=== PATIENT | female | born 1970 | race Caucasian/White ===

== ENCOUNTER 2021-05-04 07:28 | Outpatient (RCR) | payer OTHER, SELFPAY ==
[2021-03-18 07:50] VITALS: BMI 74.0
--- NOTE | 2021-03-25 08:02 | PCWOUND ---
WOCN NOTE patient called and left voicemail to cancel appointment for today at 0730. States she is ill. Will call back to reschedule for next week.
--- NOTE | 2021-06-01 07:21 | PCWOUND ---
WOCN NOTE Patient left voicemail to cancel appointment for today 06/01/21. Patient states she has tested positive for COVID-19. Patient to contact the wound center once she is off quarantine and has a negative test.
== END 2021-06-16 23:59 | disposition home or self-care (01) ==
LOC: ANHWOC 07:28
PROVIDERS: PCP Family Medicine; Visit Provider Physician Assistant Medical
DX: L97.911 Non-pressure chronic ulcer of unspecified part of right lower leg limited to breakdown of skin (principal)
CPT/HCPCS: 99212; A9270; G0463

== ENCOUNTER 2021-06-04 12:12 | Inpatient (IN) | payer OTHER, SELFPAY ==
[2021-06-04] VITALS (8 sets, daily range): BP systolic 108–143; BP diastolic 45–76; PULSE 73–90; RESP 18–24; TEMP 35.9–36.2; O2SAT 83–100
--- NOTE | ~2021-06-04 | XR_ITS ---
XR chest 1V portable DATE: 06/10/2021 10:55 INDICATION: Pneumonia TECHNIQUE: Portable upright AP chest on 06/06/2021 at 1038 hours COMPARISON: 06/06/2021 portable AP chest at 1205 hours FINDINGS: Patchy bilateral pulmonary infiltrates appear stable or mildly improved since 06/06/2021. No pleural effusion. Normal heart size. No pneumothorax. IMPRESSION: Stable or mildly improved patchy bilateral pulmonary infiltrates since 06/06/2021 Reviewed, dictated and finalized at location A. S TECHNICIAN/INSTALLER IMPRESSION: Stable or mildly improved patchy bilateral pulmonary infiltrates si nce 06/06/2021
--- NOTE | ~2021-06-04 | XR_ITS ---
XR chest 1V portable 06/06/2021 12:17 Indication: Pneumonia Procedure: AP portable chest Comparison: 06/04/2021 Findings: There is improving patchy bilateral airspace disease, consistent with resolving pneumonia. No pleural effusion or pneumothorax. No acute osseous abnormality. Impression: 1: Improving patchy bilateral pneumonia. Reviewed, dictated and finalized at location A. IGERATING MACHINE OPERATOR Impression: 1: Improving patchy bilateral pneumonia.
--- NOTE | ~2021-06-04 | US_ITS ---
. EXAMINATION: US renal BI DATE: 06/05/2021 09:32 INDICATION: Acute kidney injury. TECHNIQUE: Multiple ultrasound grayscale images of the kidneys were obtained. COMPARISON: CT abdomen and pelvis 02/01/2008 FINDINGS: The right kidney is not visualized. A structure that may be the left kidney is poorly visualized. The bladder is normal. IMPRESSION: 1. Nondiagnostic evaluation of the kidneys due to morbid obesity. Reviewed, dictated and finalized at location A. L CLEANER
--- NOTE | ~2021-06-04 | US_ITS ---
EXAMINATION: US venous doppler [facility] DATE: 06/09/2021 14:54 INDICATION: Lower limb swelling. TECHNIQUE: Grayscale ultrasound images without and with compression and Doppler ultrasound images of the bilateral lower extremity veins were obtained. COMPARISON: None. FINDINGS: The visualized portions of right common femoral vein, profunda (deep) femoral vein, femoral vein, pop liteal vein, peroneal veins, posterior tibial veins, and greater saphenous vein outflow are patent. The visualized portions of left common femoral vein, profunda femoral vein, femoral vein, popliteal v ein, peroneal veins, posterior tibial veins, and greater saphenous vein outflow are patent. IMPRESSION: 1. No deep venous thrombosis. Reviewed, dictated and finalized at location A. DING HOUSE COOK
--- NOTE | ~2021-06-04 | XR_ITS ---
EXAMINATION: XR chest 1V portable DATE: 06/04/2021 13:07 INDICATION: Shortness of breath. COVID-19 pneumonia. TECHNIQUE: A single frontal view of the chest was obtained. COMPARISON: Chest 2 views 10/10/2016 FINDINGS: There are patchy airspace opacities in all lung zones bilaterally. No pleural effusion or p neumothorax. The heart size is normal. IMPRESSION: 1. Diffuse lung disease, consistent with COVID-19 pneumonia. Reviewed, dictated and finalized at location A. UITER COORDINATOR
--- NOTE | 2021-06-04 12:17 | ECG_ITS ---
Measurements Intervals [place] Rate: 84 P: 44 ME: 153 QRS: 10 QRSD: 115 T: 35 QT: 341 QTc: 405 Interpretive Statements SINUS RHYTHM INTRAVENTRICULAR CONDUCTION DELAY VOLTAGE CRITERIA FOR LVH BASELINE ARTIFACT- III, AVF, V1-V3, V5 BORDERLINE ECG Electronically Signed On 06-04-2021 17:00:10 COMPUTER NETWORK SPECIALIST by Rubens Adrian D.O.
--- NOTE | 2021-06-04 12:36 | ED.GENADULT ---
HPI - General Adult General Chief complaint: Shortness of Breath/Dyspnea Stated complaint: COVID Positive, SOB Time Seen by Provider: 06/04/21 12:24 History of Present Illness HPI narrative: 50-year-old female presents to the emergency department complaining of Covid symptoms. Patient was vaccinated. Patient began having symptoms on Sunday. Patient's Covid test was resulted as positive Sunday. Patient does describe exertional shortness of breath and fatigue. Patient denies any associated chest pain. Patient also describes decreased appetite. Patient does have a history of sleep apnea and does wear a CPAP at nighttime. Patient was vaccinated Related Data Allergies Allergy/AdvReac Type Severity Reaction Status Date / Time No Known Allergies Allergy Mild Verified 06/04/21 12:16 Review of Systems Review of Systems: CONSTITUTIONAL: Subjective fever and chills EYES: Denies visual changes, redness, or discharge. ENT: Denies rhinorrhea, congestion, sore throat, or otalgia. CARDIOVASCULAR: Denies chest pain or palpitations, does have edema at baseline. RESPIRATORY: Reports cough and shortness of breath. GASTROINTESTINAL: Denies abdominal pain, nausea, vomiting, or diarrhea. Decreased p.o. intake GENITOURINARY: Denies dysuria or hematuria. SKIN: Denies rash or itching. MUSCULOSKELETAL: Does report myalgia. NEUROLOGIC: Denies headache, numbness, or weakness. PSYCHIATRIC: Denies anxiety or depression. PMFSH Past Medical History Medical History Ataxia Epigastric pain Obesity, morbid, BMI 50 or higher Screen for colon cancer Screening mammogram, encounter for Family History Family History Mother Hypertension Family history of kidney disease Carcinoma of colon Family history of diabetes mellitus in first degree relative Sibling Family history of elevated blood lipids Father Acute myocardial infarction Other Diabetes mellitus Family history of cardiovascular disease Social History Social History Second hand tobacco smoke exposure: No Alcohol intake: former Substance use: never Substance use type: does not use 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 Gender identity (if verbalized by the patient): Female Exam Narrative: APPEARANCE: Well appearing, no pain in distress, well-nourished. Head normocephalic atraumatic. EYES: PERRLA/EOMI, conjunctivae very clear. NOSE: Normal no drainage EARS:TMS clear Steph [place], with good light reflex. THROAT: Pharynx clear, no exudate. NECK: Supple. No adenopathy, no masses. RESPIRATORY: Airway patent, respirations nonlabored. Clear to auscultation bilaterally, no rales, rhonchi, wheezing. CARDIOVASCULAR: Regular rate and rhythm without murmurs rubs or gallops. ABDOMINAL: Soft, nontender, nondistended, no hepatosplenomegally MUSCULOSKELETAl: Moves all extremities. Strength/ROM intact, No edema, No calf tenderness. NEURO: Alert. Cranial nerves II through XII intact. Good gait. Good coordination SKIN: Warm, dry. Normal Color PSYCHIATRIC: Normal affect/mood. Course Course Emergency Course: Patient was updated on the plan for treatment and anticipated plan for admission. TIME MOTION ANALYST/PA Physician Supervision Discussed the plan for admission. Updated patient on her x-ray and results. All questions and concerns were addressed. Patient was feeling more comfortable on oxygen. Vital Signs Vital signs: Vital Signs Temperature 97.2 F L 06/04/21 12:13 Pulse Rate 90 06/04/21 12:13 Respiratory Rate 21 H 06/04/21 12:13 Blood Pressure 108/76 06/04/21 12:13 Pulse Oximetry 83 L 06/04/21 12:13 Temperature 97.2 F L 06/04/21 12:13 Pulse Rate 82 06/04/21 12:47 Respiratory Rate 21 H 06/04/21 12:13 Blood Pressure 108/76 06/04/21 12:13 Pulse Oximetry 97 1
[2021-06-04 12:50] LABS: Alveolar/Arterial O2 Gradient 109.6 mmHg; Base Excess ABG 0.2 mEq/l (+/-2.0); Carboxyhemoglobin 0.1 % THb (0-2.0); Device ROOM AIR; Fractional Inspired Oxygen 36 %; HCO3 ABG 24.9 mEq/l (22.0-26.0); Methemoglobin ABG 0.1 %THb (0-1.5); Modified Allen's Test Pass; Oxygen Saturation ABG 97.6 % (95.0-100.0); PCO2 ABG 40.7 mmHg (35.0-45.0); PO2 ABG 99.9 mmHg (80.0-100.0); PO2 FiO2 Ratio Arterial Blood 2.78 %; Reduced Hemoglobin 2.8 %THb (0-5.0); Site Drawn LEFT RADIAL; Total Hemoglobin 11.6 g/dL (12.0-18.0); pH ABG 7.405 (7.350-7.450)
[2021-06-04 12:59] LABS: Basophils Percent Auto 0.3 % (0.2-1.2); Eosinophils Absolute Auto 0.1 K/mm3 (0-0.3); Eosinophils Percent Auto 1.2 % (0-4.4); Hematocrit 36.5 % (37.0-47.0); Hemoglobin 10.9 g/dL (12.0-15.0); Immature Granulocyte Absolute 0.06 K/mm3 (0.00-0.031); Immature Granulocyte Percent A 0.9 % (0-0.5); Lymphocytes Absolute Auto 1.12 K/mm3 (0.9-3.2); Lymphocytes Percent Auto 16.3 % (18.3-44.2); Mean Corpuscular HGB Conc 29.9 g/dl (32-36); Mean Corpuscular Hemoglobin 26.6 pg (26-34); Mean Platelet Volume 9.4 fl (7.4-10.4); Monocytes Absolute Auto 0.3 K/mm3 (0.1-0.6); Monocytes Percent Auto 3.9 % (2.6-8.5); Neutrophils Absolute Auto 5.3 K/mm3 (1.3-6.7); Neutrophils Percent Auto 77.4 % (45.5-73.1); Platelet Count Result 201 k/mm3 (150-375); Red Cell Distribution Width 14.3 % (11.5-14.5); White Blood Count 6.9 K/mm3 (4.5-10.0)
[2021-06-04 13:10] LABS: INR 1.1; Prothrombin Time 14.5 Seconds (11.1-14.7)
[2021-06-04 13:11] LABS: Partial Thromboplastin Time 40.7 SECONDS (22.3-36.8)
[2021-06-04 13:13] LABS: Lactic Acid Reflex 2.5 mmol/L (0.7-2.1)
[2021-06-04 13:17] LABS: Alanine Aminotransferase 16 U/L (4-35); Alkaline Phosphatase 86 U/L (38-126); Anion Gap 12 mmol/L (8-16); Aspartate Amino Transferase 28 U/L (14-36); Bilirubin,Total 0.8 mg/dL (0.2-1.3); Blood Urea Nitrogen 22 mg/dL (7-17); Calcium 8.9 mg/dL (8.4-10.2); Carbon Dioxide 27 mmol/L (22-30); Chloride 101 mmol/L (98-107); Estimated CRCL calculation 79 ml/min; Estimated Glomerular Filt Rate 34; Glucose 131 mg/dL (65-110); Potassium 4.4 mmol/L (3.4-5.0); Sodium 140 mmol/L (137-145)
[2021-06-04 13:28] LABS: CRP 22.3 mg/dL (<1.0)
[2021-06-04] MEDS: DEXAMETHASONE 2 MG TABLET 6 MG PO (13:51)
[2021-06-04] MEDS: SODIUM CHLORIDE 0.9% IV 1,000 ML 999 ML IV CONT (13:51)
[2021-06-04 15:57] LABS: Reflex Lactic Acid Yes or No Add Lactic
[2021-06-04 16:54] LABS: Lactic Acid 0.8 mmol/L (0.7-2.1)
--- NOTE | 2021-06-04 19:25 | PC.NURSE ---
Assumed care of pt at this time. Pt alert and upright on stretcher on 2L NC. Pt states she feels better with oxygen therapy, but still feels slightly SOB when resting.
[2021-06-04 19:42] LABS: INR 1.1; Prothrombin Time 14.3 Seconds (11.1-14.7)
[2021-06-04 19:47] LABS: Alanine Aminotransferase 15 U/L (4-35); Estimated CRCL calculation 96 ml/min; Estimated Glomerular Filt Rate 43
[2021-06-04] MEDS: REMDESIVIR 200 MG/NS 250 ML 200 MG/250 ML BAG 250 MG IVPB (20:06)
--- NOTE | 2021-06-04 21:19 | PC.NURSE ---
Attempted to call report to 3rd Med/Surg at this time. No answer.
--- NOTE | 2021-06-04 23:52 | PM.IMHP ---
H&P: HPI History of Present Illness Date/Time: 06/04/211999 this is a 50-year-old female patient who came to the emergency room complaining of shortness of breath and swelling to her lower extremities. The patient tested positive on Sunday. Along with her roommates and her roommates mother. The patient did not receive any monoclonal antibodies. The patient has been vaccinated but did not receive the booster. She does have a history of apnea and wears a CPAP at night. The patient was placed on oxygen at 2 L per nasal cannula prior to that she was standing 83% on room air. The patient states that she has no appetite no energy. But she has felt that she has a low-grade fever that it was a tactile fever. She has a poor appetite with changes in her taste. She did not lose her taste but states that things just do not taste the same. The patient has an inhaler at home that she has been using. She also has been complaining of having increased edema to her lower extremities. The patient has a chronic wound to her right outer lower extremity that she has been receiving treatment for that chronic wound. The patient stated that she has so much edema that it started to weep from that site and that the wound care has been taking care of the treatments for this lower extremity. Her H&H is 10.9 and 36.5. She denies any active bleeding. Patient's baseline creatinine is somewhere around 1.3. When she initially came in as 1.6 but had a L of IV fluids and is now 1.3 back to her baseline. GFR is 43. Her lactic acid was initially 2.5 and is now on 0.8. The patient stated that she has had poor oral intake. She is also on hydrochlorothiazide and spironolactone. Her C reactive protein is 2.3. The patient was started on Decadron and given the 1 L bolus. I did start her on remdesivir. The patient is being admitted to inpatient services on the date of service of 06/04/2021 Chief Complaint: Generalized weakness COVID pneumonia Review of Systems Review of Systems: All systems reviewed & are unremarkable except as noted in HPI and below Constitutional: Constitutional: Reports as per HPI and Reports no additional constitutional complaints Eyes: Eyes: Reports as per HPI and Reports no additional eye complaints ENT: Reports system reviewed and no additional complaints, except as documented and Reports Normal hearing present Cardiovascular: Cardiovascular: Reports no additional cardiovascular complaints Respiratory: Respiratory: Reports no additional respiratory complaints and Reports no additional respiratory complaints Gastrointestinal: Gastrointestinal: Reports as per HPI and Reports no additional gastrointestinal complaints Musculoskeletal: Musculoskeletal: Reports no additional musculoskeletal complaints Integumentary/Breasts: Skin/Breast: Reports system reviewed and no additional complaints, except as docu and Reports as per HPI Neurologic: Reports system reviewed and no additional complaints, except as documented, Reports as per HPI and Reports Normal hearing present Psychiatric: Psychiatric: Reports no additional psychiatric complaints and Reports as per HPI Endocrine: Endocrine: Reports no additional endocrine complaints Hematologic/Lymphatic: Hematologic/Lymphatic: Reports no additional hematologic/lymphatic complaints Allergic/Immunologic: Allergic/Immunologic: Reports no additional allergic/immunologic complaints [facility] Past Medical History Medical History (Updated 06/05/21 @ 00:08 by Chrystal Loya NP) Anxiety Ataxia Epigastric pain GERD with esophagitis Hypertension Obesity Obesity, morbid, BMI 50 or higher Screen for colon cancer Screening mammogram, encounter for Surgical History Surgical History (Updated 06/05/21 @ 00:03 by Chrystal Loya NP) H/O eye surgery The patient has had 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 The patient is due to have another surgery yet. Hx of cholecystectomy Family Histor
[2021-06-05] VITALS (12 sets, daily range): BP systolic 124–159; BP diastolic 51–78; PULSE 66–100; RESP 16–20; TEMP 36.2–37.3; O2SAT 91–100
[2021-06-05] MEDS: ALBUTEROL SULFATE (*SP) INHALER 2 PUFF INHALATION ×3 (02:48→20:48)
[2021-06-05 08:22] LABS: Basophils Percent Auto 0.3 % (0.2-1.2); Hemoglobin 9.6 g/dL (12.0-15.0); Immature Granulocyte Absolute 0.07 K/mm3 (0.00-0.031); Immature Granulocyte Percent A 1.1 % (0-0.5); Lymphocytes Absolute Auto 0.79 K/mm3 (0.9-3.2); Lymphocytes Percent Auto 12.5 % (18.3-44.2); Mean Corpuscular Hemoglobin 26.9 pg (26-34); Mean Corpuscular Volume 89.6 fl (80-100); Mean Platelet Volume 9.4 fl (7.4-10.4); Monocytes Absolute Auto 0.4 K/mm3 (0.1-0.6); Monocytes Percent Auto 6.7 % (2.6-8.5); Neutrophils Percent Auto 79.4 % (45.5-73.1); Platelet Count Result 213 k/mm3 (150-375); Red Blood Count 3.57 M/mm3 (4.2-5.4); Red Cell Distribution Width 14.4 % (11.5-14.5); White Blood Count 6.3 K/mm3 (4.5-10.0)
[2021-06-05 08:31] LABS: Lactic Acid Reflex 0.7 mmol/L (0.7-2.1)
[2021-06-05 08:32] LABS: Alanine Aminotransferase 15 U/L (4-35); Albumin Level 3.6 g/dL (3.5-5.1); Alkaline Phosphatase 70 U/L (38-126); Anion Gap 7 mmol/L (8-16); Aspartate Amino Transferase 28 U/L (14-36); Bilirubin,Total 0.5 mg/dL (0.2-1.3); Blood Urea Nitrogen 22 mg/dL (7-17); Calcium 8.6 mg/dL (8.4-10.2); Carbon Dioxide 29 mmol/L (22-30); Chloride 101 mmol/L (98-107); Estimated CRCL calculation 96 ml/min; Estimated Glomerular Filt Rate 43; Glucose 131 mg/dL (65-110); Lactate Dehydrogenase 939 U/L (313-618); Magnesium 1.6 mg/dL (1.6-2.3); Potassium 4.4 mmol/L (3.4-5.0); Sodium 137 mmol/L (137-145)
[2021-06-05 08:33] LABS: Prothrombin Time 13.3 Seconds (11.1-14.7)
[2021-06-05] MEDS: ENOXAPARIN 40 MG/0.4 ML SYRINGE SUB-Q (10:21)
--- NOTE | 2021-06-05 13:29 | PM.IMPN ---
Progress Note: A&P Assessment and Plan (1) Acute kidney injury: Code(s): N17.9 - Acute kidney failure, unspecified Status: Acute Assessment and Plan: Patient appears to be back at her baseline. She was given and 1 L bolus. Patient stated that she has had poor oral intake since she was diagnosed with COVID-19. She said she has had a change in her sense of taste. Will get a renal ultrasound. Monitor BMP. Hold diuretics and naproxen. The patient stated that she takes a lot of naproxen for her body aches. Hold losartan (2) Pneumonia due to COVID-19 virus: Code(s): U07.1 - COVID-19; J12.82 - Pneumonia due to coronavirus disease 2018 Status: Acute Assessment and Plan: Continue with albuterol, Robitussin, Decadron and remdesivir. Continue to monitor renal function and liver functions and inflammatory markers. Clinically stable requiring only 2 L of oxygen to maintain her saturation. (3) Hypertension: Code(s): I10 - Essential (primary) hypertension Status: Chronic Assessment and Plan: Last blood pressure is 154/59. Continue to hold spironolactone, losartan and hydrochlorothiazide. Continue with metoprolol . Hold losartan due to acute kidney injury (4) Anxiety: Code(s): F41.9 - Anxiety disorder, unspecified Status: Chronic Assessment and Plan: Continue with fluoxetine (5) Obesity: Code(s): E66.9 - Obesity, unspecified Status: Chronic Assessment and Plan: Due to increased calorie to intake. Patient currently on weight management. Patient will lower already following calorie restriction. Recent weight gain due to stress at work. 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 (6) GERD with esophagitis: Code(s): K21.00 - Gastro-esophageal reflux disease with esophagitis, without bleeding Status: Chronic Assessment and Plan: Continue with her home dose of pantoprazole (7) Ulcer of right lower extremity: Qualifiers: Non-pressure ulcer stage: limited to breakdown of skin Qualified Code(s): L97.911 - Non-pressure chronic ulcer of unspecified part of right lower leg limited to breakdown of skin Code(s): L97.919 - Non-pressure chronic ulcer of unspecified part of right lower leg with unspecified severity Status: Acute Assessment and Plan: Patient has outpatient wound care treatment. Continue with consultation for wound care clinic. Subjective Date/time seen: 06/05/21 13:50 Narrative: this is a 50-year-old vaccinated female patient currently admitted with COVID pneumonia. She does have a history of apnea and wears a CPAP at night. The patient was placed on oxygen at 2 L per nasal cannula prior to that she was standing 83% on room air. The patient states that she has no appetite no energy. But she has felt that she has a low-grade fever that it was a tactile fever. She has a poor appetite with changes in her taste. She did not lose her taste but states that things just do not taste the same. The patient has an inhaler at home that she has been using. She also has been complaining of having increased edema to her lower extremities. S: Patient is examined at the bedside. She is comfortable on 2 L oxygen by nasal cannula. Review of Systems Review of Systems: All systems reviewed & are unremarkable except as noted in HPI and below Constitutional: Constitutional: Reports as per HPI and Reports no additional constitutional complaints Eyes: Eyes: Reports as per HPI and Reports no additional eye complaints ENT: Reports system reviewed and no additional complaints, except as documented and Reports Normal hearing present Cardiovascular: Cardiovascular: Reports no additional cardiovascular complaints Respiratory: Respiratory: Reports no additional respiratory complaints and Reports no additional respiratory complaints Gastrointestinal: Gastrointestinal: Reports as
[2021-06-05] MEDS: PANTOPRAZOLE 40 MG TABLET PO (13:48)
[2021-06-05] MEDS: LOSARTAN POTASSIUM 100 MG TABLET PO (13:48)
[2021-06-05] MEDS: FLUoxetine HCL 20 MG CAPSULE BY MOUTH (13:48)
[2021-06-05] MEDS: PRAVASTATIN SODIUM 20 MG TABLET BY MOUTH (13:48)
[2021-06-05 18:38] LABS: EDCOVIDSCREEN Positive (Negative)
[2021-06-05] MEDS: METOPROLOL SUCCINATE EXT REL 100 MG TABCR PO (18:40)
[2021-06-05] MEDS: REMDESIVIR 100 MG/NS 250 ML 100 MG/250 ML BAG 250 MG IVPB (20:20)
[2021-06-06] VITALS (18 sets, daily range): BP systolic 132–145; BP diastolic 59–65; PULSE 56–92; RESP 16–24; TEMP 35.6–36.9; O2SAT 84–97
[2021-06-06] MEDS: ALBUTEROL SULFATE (*SP) INHALER 2 PUFF INHALATION ×4 (03:27→21:39)
[2021-06-06 06:21] LABS: Hematocrit 32.8 % (37.0-47.0); Hemoglobin 9.7 g/dL (12.0-15.0); Mean Corpuscular HGB Conc 29.6 g/dl (32-36); Mean Corpuscular Hemoglobin 26.1 pg (26-34); Mean Corpuscular Volume 88.4 fl (80-100); Mean Platelet Volume 9.1 fl (7.4-10.4); Platelet Count Result 255 k/mm3 (150-375); Red Blood Count 3.71 M/mm3 (4.2-5.4); Red Cell Distribution Width 14.3 % (11.5-14.5); White Blood Count 4.7 K/mm3 (4.5-10.0)
[2021-06-06 06:27] LABS: Prothrombin Time 13.3 Seconds (11.1-14.7)
[2021-06-06 07:02] LABS: Alanine Aminotransferase 17 U/L (4-35); Anion Gap 7 mmol/L (8-16); Blood Urea Nitrogen 25 mg/dL (7-17); Calcium 8.7 mg/dL (8.4-10.2); Carbon Dioxide 30 mmol/L (22-30); Chloride 101 mmol/L (98-107); Estimated CRCL calculation 90 ml/min; Estimated Glomerular Filt Rate 40; Glucose 133 mg/dL (65-110); Potassium 4.5 mmol/L (3.4-5.0); Sodium 138 mmol/L (137-145)
[2021-06-06] MEDS: LOSARTAN POTASSIUM 100 MG TABLET PO (09:32)
[2021-06-06] MEDS: FLUoxetine HCL 20 MG CAPSULE BY MOUTH (09:32)
[2021-06-06] MEDS: PRAVASTATIN SODIUM 20 MG TABLET BY MOUTH (09:32)
[2021-06-06] MEDS: PANTOPRAZOLE 40 MG TABLET PO (09:32)
[2021-06-06] MEDS: METOPROLOL SUCCINATE EXT REL 100 MG TABCR PO (09:32)
[2021-06-06] MEDS: SPIRONOLACTONE 25 MG TABLET PO (09:32)
[2021-06-06] MEDS: hydroCHLOROthiazide 25 MG TABLET PO (09:32)
[2021-06-06] MEDS: ENOXAPARIN 40 MG/0.4 ML SYRINGE SUB-Q ×2 (09:33→20:57)
--- NOTE | 2021-06-06 11:32 | PM.IMPN ---
Progress Note: A&P Assessment and Plan (1) Acute kidney injury: Code(s): N17.9 - Acute kidney failure, unspecified Status: Acute Assessment and Plan: Recovered acute kidney injury. Patient appears to be back at her baseline. She was given and 1 L bolus. Patient stated that she has had poor oral intake since she was diagnosed with COVID-19. She said she has had a change in her sense of taste. Will get a renal ultrasound. Monitor BMP. Hold diuretics and naproxen. Avoid NSAIDs and other nephrotoxic medications in the future P The patient stated that she takes a lot of naproxen for her body aches. Hold losartan. Unfortunately renal ultrasound was a nondiagnostic evaluation of the kidneys due to body habitus. The right kidney is not visualized. A structure that may be the left kidney is poorly visualized (2) Pneumonia due to COVID-19 virus: Code(s): U07.1 - COVID-19; J12.82 - Pneumonia due to coronavirus disease 2019 Status: Acute Assessment and Plan: Patient confirm with COVID-19 on 06/05/2021. Patient receive remdesivir and Decadron. High oxygen supplement requirement remains modest at 2 L; however patient oxygen drop significantly with effort. Obtain echocardiogram, V/Q scan of 10, influenza, portable chest and ABG. Chest x-ray from 06/04/2021 reveals diffuse lung disease consistent with COVID 19 pneumonia. Continue with albuterol, Robitussin, Decadron and remdesivir. Continue to monitor renal function and liver functions and inflammatory markers. Clinically stable requiring only 2 L of oxygen to maintain her saturation. (3) Hypertension: Code(s): I10 - Essential (primary) hypertension Status: Chronic Assessment and Plan: Last blood pressure is 133/59-140/65. Continue to hold spironolactone, losartan and hydrochlorothiazide. Continue with metoprolol . Hold losartan due to acute kidney injury (4) Anxiety: Code(s): F41.9 - Anxiety disorder, unspecified Status: Chronic Assessment and Plan: Continue with fluoxetine (5) Obesity: Code(s): E66.9 - Obesity, unspecified Status: Chronic Assessment and Plan: Due to increased calorie to intake. Patient currently on weight management program. Patient is already following calorie restriction. Recent weight gain due to stress at work. 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 Patient already attending therapy session to the with the addiction. (6) GERD with esophagitis: Code(s): K21.00 - Gastro-esophageal reflux disease with esophagitis, without bleeding Status: Chronic Assessment and Plan: Continue with her home dose of pantoprazole (7) Ulcer of right lower extremity: Qualifiers: Non-pressure ulcer stage: limited to breakdown of skin Qualified Code(s): L97.911 - Non-pressure chronic ulcer of unspecified part of right lower leg limited to breakdown of skin Code(s): L97.919 - Non-pressure chronic ulcer of unspecified part of right lower leg with unspecified severity Status: Acute Assessment and Plan: Patient has outpatient wound care treatment. Continue with consultation for wound care clinic. Subjective Date/time seen: 06/06/21 11:32 S: Patient was examined at the bedside. She reports hypoxic event earlier this morning after she changed her clothes. At this moment, she denies any other complaints. At rest she is comfortable on 2 L of oxygen. Review of Systems Review of Systems: All systems reviewed & are unremarkable except as noted in HPI and below Constitutional: Constitutional: Reports as per HPI and Reports no additional constitutional complaints Eyes: Eyes: Reports as per HPI and Reports no additional eye complaints ENT: Reports system reviewed and no additional complaints, except as documented and Reports Normal hearing present Cardiovascular: Cardiovascular: Reports no additional cardiovascula
--- NOTE | 2021-06-06 11:57 | HOMEO2EVAL ---
Evaluation was performed at [facility] Home Oxygen Evaluation RC: Home Oxygen (O2) Evaluation Start: 06/06/21 09:57 Freq: ONCE Status: Active Protocol: RPE Activity Type Activity Date Activity User E-Sign Co-Sign Detail Recorded Client Recorded Date Recorded By Document 06/06/21 11:24 KRM [email or web address] 06/06/21 11:57 KRM Document 06/06/21 11:25 [email or web address] [email or web address] 06/06/21 11:57 KRM Document 06/06/21 11:27 [email or web address] [email or web address] 06/06/21 11:57 KRM Document 06/06/21 11:30 [email or web address] [email or web address] 06/06/21 11:57 KRM Document 06/06/21 11:32 [email or web address] [email or web address] 06/06/21 11:57 KRM Document 06/06/21 11:35 KRM [email or web address] 06/06/21 11:57 KRM 06/06/21 06/06/21 06/06/21 11:24 11:25 11:27 Home O2 Evaluation Test Phase Resting Resting Resting Oxygen Delivery Room Air Nasal Cannula Nasal Cannula Oxygen Flow Rate (L/min) 1 2 Pulse Oximetry (90-100 %) 87 L 89 L 93 Pulse Rate (60-100 beats/min) 67 65 65 Activity Tolerance Ambulation Distance (feet) Home Oxygen Evaluation Comments Treatment Charges 06/06/21 06/06/21 06/06/21 11:30 11:32 11:35 Home O2 Evaluation Test Phase Exercise Exercise Exercise Oxygen Delivery Nasal Cannula Nasal Cannula Nasal Cannula Oxygen Flow Rate (L/min) 2 3 4 Pulse Oximetry (90-100 %) 84 L 88 L 90 Pulse Rate (60-100 beats/min) 90 92 90 Activity Tolerance Fair Fair Fair Ambulation Distance (feet) 25 Home Oxygen Evaluation Comments 2LPM AT REST AND 4LPM WITH ACTIVITY. Treatment Charges O2 Evaluation - Inpatient
[2021-06-06 12:06] LABS: Alveolar/Arterial O2 Gradient 80.2 mmHg; Base Excess ABG 1.6 mEq/l (+/-2.0); Device NASAL CANNULA; Fractional Inspired Oxygen 28 %; HCO3 ABG 26.6 mEq/l (22.0-26.0); Modified Allen's Test Pass; Oxygen Content ABG 15.5 %vol (16.0-22.0); Oxygen Saturation ABG 93.5 % (95.0-100.0); Oxyhemoglobin 92.3 % THb (90.0-100.0); PCO2 ABG 43.9 mmHg (35.0-45.0); PO2 ABG 67.6 mmHg (80.0-100.0); PO2 FiO2 Ratio Arterial Blood 2.41 %; Site Drawn RIGHT RADIAL; Total Hemoglobin 11.9 g/dL (12.0-18.0); pH ABG 7.401 (7.350-7.450)
--- NOTE | 2021-06-06 14:10 | PCRCNOTE ---
PT. REQUIRES 2LPM AT REST AND 4LPM WITH ACTIVITY. PT. ALREADY HAS [facility] FOR HER CPAP SUPPLIER. FAXED O2 INFO TO THEM. PT. AWARE. TANK TO BE DELIVERED TODAY OR TOMORROW.
[2021-06-06] MEDS: SILVERGEL (ELTA) 45 ML 1 APPLIC TOPICAL (17:33)
[2021-06-06] MEDS: REMDESIVIR 100 MG/NS 250 ML 100 MG/250 ML BAG 250 MG IVPB (20:57)
[2021-06-07] VITALS (11 sets, daily range): BP systolic 135–151; BP diastolic 55–69; PULSE 58–66; RESP 16–22; TEMP 35.6–36.8; O2SAT 92–98
--- NOTE | 2021-06-07 | ECHO_ITS ---
Patient Info Name: Dahiana Sylvester Age: 50 years : 1970 Gender: Female Ht: 70 in Wt: 498 lbs BSA: 3.49 m2 HR: 59 bpm BP: 141 / 63 mmHg Technical Quality: Poor Exam Date: 06/07/2021 10:55 AM Exam Location: [facility] Patient Status: Inpatient Admit Date: 06/04/2021 Staff Ordering Physician: Shirin Lau MD Reconsignment Clerk: Ludy Ty RDCS Attending Provider: Marta Mckoy MD Exam Type: CA echo dop color flow w con Study Info Indications - COVID Complete two-dimensional, color flow and Doppler transthoracic echocardiogram is performed with contrast to opacify the left ventricle and to improve the deliniation of the left ventricle endocardial borders. Reason for Poor Study: patient body habitus Summary 1. Left ventricular chamber dimension is mildly enlarged. 2. Left ventricular systolic function is normal, estimated at 55-60%. 3. The left ventricular diastolic function is grade II diastolic dysfunction. 4. E/e' 9 is minimally elevated. 5. No pulmonary hypertension, estimated pulmonary arterial systolic pressure is 22 mmHg. 6. Dilated inferior vena cava with >50% collapse upon inspiration consistent with elevated right atrial pressure, 10 mmHg. Left Ventricle E/e' 9 is minimally elevated. Left ventricular chamber dimension is mildly enlarged. Left ventricular systolic function is normal, estimated at 55-60%. The left ventricular diastolic function is grade II diastolic dysfunction. Right Ventricle Right ventricular chamber dimension is not well visualized. Left Atria Left atrial chamber dimension is normal. Right Atria Right atrial chamber dimension is normal. Aortic Valve The aortic valve is not well visualized. Cannot determine number of aortic valve leaflets. There is no aortic valve stenosis. There is no aortic valve regurgitation. Pulmonic Valve The pulmonic valve is not well visualized. There is no pulmonic regurgitation. Mitral Valve There is no mitral valve stenosis. There is no mitral valve regurgitation. Tricuspid Valve The tricuspid valve leaflets are not well visualized. There is no tricuspid valve regurgitation. No pulmonary hypertension, estimated pulmonary arterial systolic pressure is 22 mmHg. Pericardium/Pleural There is no pericardial effusion. Inferior Vena Cava Dilated inferior vena cava with >50% collapse upon inspiration consistent with elevated right atrial pressure, 10 mmHg. Aorta The aortic root size at the sinus of Valsalva is normal. Left Ventricular Outflow Tract Name Value Normal LVOT 2D LVOT Diameter 1.99 cm LVOT Doppler LVOT Peak Gradient 6 mmHg LVOT Mean Gradient 4 mmHg LVOT VTI 31.43 cm LVOT VTI/AV VTI Ratio 0.73 LVOT Stroke Volume 97.82 ml LVOT CO 5.76 l/min LVOT CI 1.65 L/min/m2 Pulmonic Valve Name Value
[2021-06-07 05:59] LABS: Hematocrit 33.9 % (37.0-47.0); Hemoglobin 10.3 g/dL (12.0-15.0); Mean Corpuscular HGB Conc 30.4 g/dl (32-36); Mean Corpuscular Hemoglobin 26.6 pg (26-34); Mean Corpuscular Volume 87.6 fl (80-100); Mean Platelet Volume 8.4 fl (7.4-10.4); Platelet Count Result 294 k/mm3 (150-375); Red Blood Count 3.87 M/mm3 (4.2-5.4); Red Cell Distribution Width 14.1 % (11.5-14.5); White Blood Count 5.5 K/mm3 (4.5-10.0)
[2021-06-07 06:13] LABS: INR 1.1; Prothrombin Time 14.4 Seconds (11.1-14.7)
[2021-06-07 06:29] LABS: Anion Gap 7 mmol/L (8-16); Blood Urea Nitrogen 30 mg/dL (7-17); CRP 6.2 mg/dL (<1.0); Calcium 9.1 mg/dL (8.4-10.2); Carbon Dioxide 33 mmol/L (22-30); Chloride 98 mmol/L (98-107); Estimated CRCL calculation 90 ml/min; Estimated Glomerular Filt Rate 40; Glucose 112 mg/dL (65-110); Lactate Dehydrogenase 1014 U/L (313-618); Potassium 4.6 mmol/L (3.4-5.0); Sodium 138 mmol/L (137-145)
[2021-06-07] MEDS: hydroCHLOROthiazide 25 MG TABLET PO (08:06)
[2021-06-07] MEDS: SILVERGEL (ELTA) 45 ML 1 APPLIC TOPICAL (08:06)
[2021-06-07] MEDS: LOSARTAN POTASSIUM 100 MG TABLET PO (08:07)
[2021-06-07] MEDS: SPIRONOLACTONE 25 MG TABLET PO (08:07)
[2021-06-07] MEDS: FLUoxetine HCL 20 MG CAPSULE BY MOUTH (08:07)
[2021-06-07] MEDS: PANTOPRAZOLE 40 MG TABLET PO (08:07)
[2021-06-07] MEDS: PRAVASTATIN SODIUM 20 MG TABLET BY MOUTH (08:07)
[2021-06-07] MEDS: METOPROLOL SUCCINATE EXT REL 100 MG TABCR PO (08:08)
[2021-06-07] MEDS: ENOXAPARIN 40 MG/0.4 ML SYRINGE SUB-Q ×2 (08:10→20:50)
[2021-06-07] MEDS: ALBUTEROL SULFATE (*SP) INHALER 2 PUFF INHALATION ×4 (08:48→22:03)
[2021-06-07 09:19] LABS: Alanine Aminotransferase 26 U/L (4-35)
[2021-06-07] MEDS: PERFLUTREN LIPID MICROSPHERES 1.5 ML VIAL DILUTED TO 10 ML TOTAL VOLUME IV PUSH (11:23)
--- NOTE | 2021-06-07 15:26 | PM.IMPN ---
Progress Note: A&P Assessment and Plan (1) Pneumonia due to COVID-19 virus: Code(s): U07.1 - COVID-19; J12.82 - Pneumonia due to coronavirus disease 2019 Status: Acute Assessment and Plan: Patient diagnosis with COVID-19 on 06/05/2021. Patient was started on remdesivir(06/05-06/07) and Decadron. High oxygen supplement requirement remains modest at 2 L; however patient oxygen drop significantly with effort. Obtain echocardiogram, V/Q scan of 10, influenza, portable chest and ABG. Chest x-ray from 06/04/2021 reveals diffuse lung disease consistent with COVID 19 pneumonia. Continue with albuterol, Robitussin, Decadron and remdesivir. Continue to monitor renal function and liver functions and inflammatory markers. Clinically stable requiring only 2 L of oxygen to maintain her saturation. (2) Hypertension: Code(s): I10 - Essential (primary) hypertension Status: Chronic Assessment and Plan: Patient maintaining blood pressure at goal without antihypertensive medications. Last blood pressure is in the 140/58-151/65 range. Continue to hold spironolactone, losartan and hydrochlorothiazide. Currently patient is receiving metoprolol . Hold losartan due to acute kidney injury (3) Acute kidney injury: Code(s): N17.9 - Acute kidney failure, unspecified Status: Acute Assessment and Plan: Recovered acute kidney injury. Patient appears to be back at her baseline. She was given and 1 L bolus. Patient stated that she has had poor oral intake since she was diagnosed with COVID-19. She said she has had a change in her sense of taste. Will get a renal ultrasound. Monitor BMP. Hold diuretics and naproxen. Avoid NSAIDs and other nephrotoxic medications in the future P The patient stated that she takes a lot of naproxen for her body aches. Hold losartan. Unfortunately renal ultrasound was a nondiagnostic evaluation of the kidneys due to body habitus. The right kidney is not visualized. A structure that may be the left kidney is poorly visualized (4) Anxiety: Code(s): F41.9 - Anxiety disorder, unspecified Status: Chronic Assessment and Plan: Continue with fluoxetine (5) Obesity: Code(s): E66.9 - Obesity, unspecified Status: Chronic Assessment and Plan: Due to increased calorie to intake. Patient currently on weight management program. Patient is already following calorie restriction. Recent weight gain due to stress at work. 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 Patient already attending therapy session to the with the addiction. (6) GERD with esophagitis: Code(s): K21.00 - Gastro-esophageal reflux disease with esophagitis, without bleeding Status: Chronic Assessment and Plan: Continue with her home dose of pantoprazole. Give Tums as needed for symptoms. (7) Ulcer of right lower extremity: Qualifiers: Non-pressure ulcer stage: limited to breakdown of skin Qualified Code(s): L97.911 - Non-pressure chronic ulcer of unspecified part of right lower leg limited to breakdown of skin Code(s): L97.919 - Non-pressure chronic ulcer of unspecified part of right lower leg with unspecified severity Status: Acute Assessment and Plan: Patient has outpatient wound care treatment. Continue with consultation for wound care clinic. Subjective Date/time seen: 06/07/21 15:26 S: Patient was seen and examined at the bedside. She reports mild stomach discomfort. She is comfortable and asymptomatic at rest. There is persistent hypoxia with activity, requiring oxygen supplementation of 4 L. energy levels are improving. Review of Systems Review of Systems: All systems reviewed & are unremarkable except as noted in HPI and below Constitutional: Constitutional: Reports as per HPI and Reports no additional constitutional complaints Eyes: Eyes: Reports as per HPI and Reports no additional
--- NOTE | 2021-06-07 16:00 | PCRCNOTE ---
Tank to be delivered to pt room, Pt has [facility] for CPAP and O2 needs.
[2021-06-07] MEDS: REMDESIVIR 100 MG/NS 250 ML 100 MG/250 ML BAG 250 MG IVPB (21:21)
[2021-06-08] VITALS (10 sets, daily range): BP systolic 132–147; BP diastolic 57–74; PULSE 61–80; RESP 16–22; TEMP 36.3–37; O2SAT 94–99
[2021-06-08] MEDS: ALBUTEROL SULFATE (*SP) INHALER 2 PUFF INHALATION ×4 (03:15→21:40)
[2021-06-08 06:45] LABS: Hematocrit 36.8 % (37.0-47.0); Mean Corpuscular HGB Conc 29.9 g/dl (32-36); Mean Corpuscular Hemoglobin 26.6 pg (26-34); Mean Corpuscular Volume 88.9 fl (80-100); Mean Platelet Volume 8.8 fl (7.4-10.4); Platelet Count Result 280 k/mm3 (150-375); Red Blood Count 4.14 M/mm3 (4.2-5.4); Red Cell Distribution Width 13.8 % (11.5-14.5); White Blood Count 6.2 K/mm3 (4.5-10.0)
[2021-06-08 07:04] LABS: INR 1.2; Prothrombin Time 14.8 Seconds (11.1-14.7)
[2021-06-08 07:26] LABS: Alanine Aminotransferase 43 U/L (4-35); Anion Gap 7 mmol/L (8-16); Blood Urea Nitrogen 33 mg/dL (7-17); Calcium 8.9 mg/dL (8.4-10.2); Carbon Dioxide 31 mmol/L (22-30); Chloride 98 mmol/L (98-107); Estimated CRCL calculation 96 ml/min; Estimated Glomerular Filt Rate 43; Glucose 104 mg/dL (65-110); Potassium 4.4 mmol/L (3.4-5.0); Sodium 136 mmol/L (137-145)
[2021-06-08] MEDS: SILVERGEL (ELTA) 45 ML 1 APPLIC TOPICAL (10:01)
[2021-06-08] MEDS: LOSARTAN POTASSIUM 100 MG TABLET PO (10:02)
[2021-06-08] MEDS: hydroCHLOROthiazide 25 MG TABLET PO (10:02)
[2021-06-08] MEDS: SPIRONOLACTONE 25 MG TABLET PO (10:02)
[2021-06-08] MEDS: METOPROLOL SUCCINATE EXT REL 100 MG TABCR PO (10:02)
[2021-06-08] MEDS: PRAVASTATIN SODIUM 20 MG TABLET BY MOUTH (10:02)
[2021-06-08] MEDS: FLUoxetine HCL 20 MG CAPSULE BY MOUTH (10:02)
[2021-06-08] MEDS: PANTOPRAZOLE 40 MG TABLET PO (10:03)
--- NOTE | 2021-06-08 11:15 | PM.IMPN ---
Progress Note: A&P Assessment and Plan (1) Pneumonia due to COVID-19 virus: Code(s): U07.1 - COVID-19; J12.82 - Pneumonia due to coronavirus disease 2019 Status: Acute Assessment and Plan: Patient diagnosis with COVID-19 on 06/05/2021. Patient was started on remdesivir(06/05-06/08) and Decadron. She will receive her final dose of remdesivir tomorrow. High oxygen supplement requirement is improving, tolerating 1-2 L at rest.; however patient oxygen continues to drop significantly with effort; she would need 4 L with activity. Echocardiogram: dilated inferior vena cava with >50% collapse upon inspiration consistent with elevated right atrial pressure, 10 mmHg. Portable chest reveals improving patchy bilateral pneumonia. Chest x-ray from 06/04/2021 reveals diffuse lung disease consistent with COVID 19 pneumonia. Continue with albuterol, Robitussin, Decadron and remdesivir. Continue to monitor renal function and liver functions and inflammatory markers. Clinically stable requiring only 2 L of oxygen to maintain her saturation. (2) Hypertension: Code(s): I10 - Essential (primary) hypertension Status: Chronic Assessment and Plan: Patient maintaining blood pressure at goal without antihypertensive medications. Last blood pressure is in the 132/57-147/62 range. Continue to hold spironolactone, losartan and hydrochlorothiazide. Currently patient is receiving metoprolol . Hold losartan due to acute kidney injury (3) Acute kidney injury: Code(s): N17.9 - Acute kidney failure, unspecified Status: Acute Assessment and Plan: Recovered acute kidney injury. Patient appears to be back at her baseline. She was given and 1 L bolus. Patient stated that she has had poor oral intake since she was diagnosed with COVID-19. She said she has had a change in her sense of taste. Will get a renal ultrasound. Monitor BMP. Hold diuretics and naproxen. Avoid NSAIDs and other nephrotoxic medications in the future P The patient stated that she takes a lot of naproxen for her body aches. Hold losartan. Unfortunately renal ultrasound was a nondiagnostic evaluation of the kidneys due to body habitus. The right kidney is not visualized. A structure that may be the left kidney is poorly visualized (4) Anxiety: Code(s): F41.9 - Anxiety disorder, unspecified Status: Chronic Assessment and Plan: Continue with fluoxetine (5) Obesity: Code(s): E66.9 - Obesity, unspecified Status: Chronic Assessment and Plan: Due to increased calorie to intake. Patient currently on weight management program. Patient is already following calorie restriction. Recent weight gain due to stress at work. 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 Patient already attending therapy session to the with the addiction. (6) GERD with esophagitis: Code(s): K21.00 - Gastro-esophageal reflux disease with esophagitis, without bleeding Status: Chronic Assessment and Plan: Continue with her home dose of pantoprazole. Give Tums as needed for symptoms. (7) Ulcer of right lower extremity: Qualifiers: Non-pressure ulcer stage: limited to breakdown of skin Qualified Code(s): L97.911 - Non-pressure chronic ulcer of unspecified part of right lower leg limited to breakdown of skin Code(s): L97.919 - Non-pressure chronic ulcer of unspecified part of right lower leg with unspecified severity Status: Acute Assessment and Plan: Patient has outpatient wound care treatment. Continue with consultation for wound care clinic. Subjective Date/time seen: 06/08/21 11:16 S: Patient was examined at the bedside. Improve oxygenation a rest; oxygen saturation drops with activity and she requires 4 L of oxygen supplementation. Of note, she did not tolerate CPAP due to dry air. Patient to be provided a humidified O2. Review of Systems Review of Sys
[2021-06-08] MEDS: ENOXAPARIN 40 MG/0.4 ML SYRINGE SUB-Q ×2 (11:35→21:34)
[2021-06-08 15:14] LABS: D Dimer 1.74 ug/mL (<0.48)
--- NOTE | 2021-06-08 17:08 | PCRCNOTE ---
Window of time for administration has passed. See next scheduled administration. Window of time for administration has passed. See next scheduled administration.
--- NOTE | 2021-06-08 17:42 | PM.CNCAR ---
Assessment and Plan Assessment and plan (1) Echocardiogram findings abnormal, without diagnosis: Code(s): R93.1 - Abnormal findings on diagnostic imaging of heart and coronary circulation Status: Acute Assessment and Plan: Patient's echo showed enlargement of the inferior vena cava which can be a reflection of elevation of right atrial, right ventricular or pulmonary pressures. Her estimated right atrial pressure was mildly elevated. Many things can cause this such as chronic lung disease, sleep apnea, tricuspid valve disease, pulmonary emboli, left heart failure etc.. Regarding my assessment as to whether she may have a PE as the etiology, the patient had gradual he worsening shortness of breath prior to admission and has been gradually improving. Her oxygen needs have been decreasing. Her edema has been better than usual recently. There has been no chest pain, leg pain, history of DVT or PE. Her D-dimer is mildly elevated 1.7, but that may simply be because of her COVID infection. She did not have any pulmonary hypertension on her echo. My index of suspicion for a PE as being the etiology of her elevated right atrial pressure is very low. I suspect the elevated right atrial pressure is related to her morbid obesity, sleep apnea and diastolic dysfunction. Recommend ongoing primary prevention for coronary disease and CHF with blood pressure control, lipid management, weight loss and exercise, etc.. . (2) Pneumonia due to COVID-19 virus: Code(s): U07.1 - COVID-19; J12.82 - Pneumonia due to coronavirus disease 2018 Status: Acute Assessment and Plan: Gradually improving with usual management. Additional Plan No further cardiac workup or evaluation for PE is necessary in my opinion. History of Present Illness History of Present Illness Consult date/time: 06/08/21 17:42 Reason For Visit: COVID Positive, SOB Narrative: Dahiana Sylvester is a 50 y.o. female whom I was asked to see at the request of Shirin Lau for my advice and opinion regarding her elevated right atrial pressure on Echo, and whether or not she needs further evaluation for a pulmonary embolus. She was admitted through the emergency room with shortness of breath and COVID pneumonia on June 04. She has been treated with remdesivir and Decadron, and IV fluids for her acute kidney injury. She was initially treated with 4 L O2 and CPAP, but now is down to 2 L nasal cannula. She is out of bed at times in going to the bathroom; she may get dyspneic is ambulating. Her lower extremity edema has been improved recently. No calf pain. No sudden abrupt shortness of breath. [place] some tightness when she was having breathing problems on admission but no other chest pain. Ms. Talbot has a h/o morbid obesity (BMI 72 Kg/m2), and sleep apnea on CPAP, chronic venous stasis with a wound on the right lower extremity, she was treated for for her chronic venous insufficiency with EVLT by [facility], perhaps in 2018 and 2019. No history of blood clots or heart disease. Review of Systems Constitutional: Constitutional: Reports fatigue Eyes: Eyes: Reports no additional eye complaints ENT: Denies epistaxis Cardiovascular: Cardiovascular: Denies chest pain, Reports pedal edema, Reports leg edema, Denies lightheadedness and Denies palpitations Respiratory: Respiratory: Reports cough, Reports dyspnea and Reports dyspnea on exertion Gastrointestinal: Gastrointestinal: Denies abdominal pain Genitourinary: Genitourinary: Denies hematuria Musculoskeletal: Musculoskeletal: Reports no additional musculoskeletal complaints Integumentary/Breasts: Skin/Breast: Denies rash and Reports wounds Comments: Right lower extremity wound [facility] by [facility], count [facility] the [facility] Neurologic: Reports system reviewed and no additional complaints, except as documented Psychiatric: Psychiatric: Reports no additional psychiatric complaints PMFSH Past Medical Histo
[2021-06-08] MEDS: REMDESIVIR 100 MG/NS 250 ML 100 MG/250 ML BAG 250 MG IVPB (21:34)
[2021-06-09] VITALS (14 sets, daily range): BP systolic 110–162; BP diastolic 50–77; PULSE 56–80; RESP 14–20; TEMP 35.6–37.2; O2SAT 87–99
[2021-06-09] MEDS: ALBUTEROL SULFATE (*SP) INHALER 2 PUFF INHALATION ×3 (02:29→20:30)
[2021-06-09 06:38] LABS: Anion Gap 8 mmol/L (8-16); Blood Urea Nitrogen 35 mg/dL (7-17); Calcium 8.9 mg/dL (8.4-10.2); Carbon Dioxide 32 mmol/L (22-30); Chloride 99 mmol/L (98-107); Estimated CRCL calculation 90 ml/min; Estimated Glomerular Filt Rate 40; Glucose 114 mg/dL (65-110); Potassium 4.5 mmol/L (3.4-5.0); Sodium 139 mmol/L (137-145)
[2021-06-09 06:45] LABS: Hematocrit 35.1 % (37.0-47.0); Hemoglobin 10.6 g/dL (12.0-15.0); Mean Corpuscular HGB Conc 30.2 g/dl (32-36); Mean Corpuscular Hemoglobin 26.4 pg (26-34); Mean Corpuscular Volume 87.3 fl (80-100); Platelet Count Result 305 k/mm3 (150-375); Red Blood Count 4.02 M/mm3 (4.2-5.4); Red Cell Distribution Width 13.4 % (11.5-14.5); White Blood Count 7.4 K/mm3 (4.5-10.0)
[2021-06-09] MEDS: ENOXAPARIN 40 MG/0.4 ML SYRINGE SUB-Q ×2 (09:19→21:27)
[2021-06-09] MEDS: SILVERGEL (ELTA) 45 ML 1 APPLIC TOPICAL (09:19)
[2021-06-09] MEDS: PRAVASTATIN SODIUM 20 MG TABLET BY MOUTH (09:20)
[2021-06-09] MEDS: PANTOPRAZOLE 40 MG TABLET PO (09:20)
[2021-06-09] MEDS: FLUoxetine HCL 20 MG CAPSULE BY MOUTH (09:20)
[2021-06-09] MEDS: METOPROLOL SUCCINATE EXT REL 100 MG TABCR PO (09:20)
[2021-06-09] MEDS: SPIRONOLACTONE 25 MG TABLET PO (09:20)
[2021-06-09] MEDS: LOSARTAN POTASSIUM 100 MG TABLET PO (09:21)
[2021-06-09] MEDS: hydroCHLOROthiazide 25 MG TABLET PO (09:21)
--- NOTE | 2021-06-09 11:00 | PCRCNOTE ---
Window of time for administration has passed. See next scheduled administration.
--- NOTE | 2021-06-09 16:47 | HOMEO2EVAL ---
Evaluation was performed at [facility] Home Oxygen Evaluation RC: Home Oxygen (O2) Evaluation Start: 06/06/21 09:57 Freq: ONCE Status: Active Protocol: RPE Activity Type Activity Date Activity User E-Sign Co-Sign Detail Recorded Client Recorded Date Recorded By Document 06/09/21 16:45 BRAYDEN [id number] 06/09/21 16:47 BRAYDEN 06/09/21 16:45 Home O2 Evaluation Test Phase Resting Oxygen Delivery Room Air Pulse Oximetry (90-100 %) 87 L Treatment Charges O2 Evaluation - Inpatient
--- NOTE | 2021-06-09 16:48 | PCRCNOTE ---
PT HAD REPEAT ROOM AIR SAT CHECK AT 1645 ON 06/09. THIS WILL REQUALIFY HER FOR HOME O2. NO REPEAT EVAL NEEDED.
--- NOTE | 2021-06-09 17:28 | PM.IMPN ---
Progress Note: A&P Assessment and Plan (1) Pneumonia due to COVID-19 virus: Code(s): U07.1 - COVID-19; J12.82 - Pneumonia due to coronavirus disease 2019 Status: Acute Assessment and Plan: Patient diagnosis with COVID-19 on 06/05/2021. Patient was started on remdesivir(06/05-06/09), completed 5 doses and Decadron. She has receive her final dose of remdesivir today. High oxygen supplement requirement is improving, tolerating 0-1 L at rest.; however patient oxygen continues to drop significantly with effort; she would need 4 L with activity. Echocardiogram: dilated inferior vena cava with >50% collapse upon inspiration consistent with elevated right atrial pressure, 10 mmHg. Portable chest reveals improving patchy bilateral pneumonia. Chest x-ray from 06/04/2021 reveals diffuse lung disease consistent with COVID 19 pneumonia. Continue with albuterol, Robitussin, Decadron . Continue to monitor renal function and liver functions and inflammatory markers. Clinically stable requiring only 1 L of oxygen to maintain her saturation rest. (2) Hypertension: Code(s): I10 - Essential (primary) hypertension Status: Chronic Assessment and Plan: Patient blood pressure have been increasing, which is a good sign. Last blood pressure measurements are in the 129/77-162/70 range. We will previously holding spironolactone, losartan and hydrochlorothiazide. Patient was only receiving metoprolol . Resume hydrochlorothiazide. Continue to monitor blood pressure closely. (3) Acute kidney injury: Code(s): N17.9 - Acute kidney failure, unspecified Status: Acute Assessment and Plan: Recovered acute kidney injury. Patient appears to be back at her baseline. Hold diuretics and naproxen. Avoid NSAIDs and other nephrotoxic medications in the future P The patient stated that she takes a lot of naproxen for her body aches. Hold losartan. Unfortunately renal ultrasound was a nondiagnostic evaluation of the kidneys due to body habitus. The right kidney is not visualized. A structure that may be the left kidney is poorly visualized (4) Anxiety: Code(s): F41.9 - Anxiety disorder, unspecified Status: Chronic Assessment and Plan: Continue with fluoxetine (5) Obesity: Code(s): E66.9 - Obesity, unspecified Status: Chronic Assessment and Plan: Due to increased caloric intake. Patient currently on weight management program. Patient is already following calorie restriction. Recent weight gain due to stress at work. 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 Patient already attending therapy session to the with the addiction. (6) GERD with esophagitis: Code(s): K21.00 - Gastro-esophageal reflux disease with esophagitis, without bleeding Status: Chronic Assessment and Plan: Continue with her home dose of pantoprazole. Give Tums as needed for symptoms. (7) Ulcer of right lower extremity: Qualifiers: Non-pressure ulcer stage: limited to breakdown of skin Qualified Code(s): L97.911 - Non-pressure chronic ulcer of unspecified part of right lower leg limited to breakdown of skin Code(s): L97.919 - Non-pressure chronic ulcer of unspecified part of right lower leg with unspecified severity Status: Acute Assessment and Plan: Patient has outpatient wound care treatment. Continue with consultation for wound care clinic. Subjective Date/time seen: 06/09/21 16:28 S: Patient was examined at the bedside. She is improving slowly. O2 requirement at rest 0-1 L. Patient was out of bed to chair. Review of Systems Review of Systems: All systems reviewed & are unremarkable except as noted in HPI and below Constitutional: Constitutional: Reports as per HPI and Reports no additional constitutional complaints Eyes: Eyes: Reports as per HPI and Reports no additional eye complaints ENT: Reports system reviewed
[2021-06-10] VITALS (7 sets, daily range): BP systolic 128–154; BP diastolic 51–73; PULSE 58–67; RESP 16–20; TEMP 36.2–37.4; O2SAT 90–96
[2021-06-10] MEDS: ALBUTEROL SULFATE (*SP) INHALER 2 PUFF INHALATION ×2 (03:30→09:35)
[2021-06-10 06:46] LABS: Hematocrit 37.9 % (37.0-47.0); Hemoglobin 11.6 g/dL (12.0-15.0); Mean Corpuscular HGB Conc 30.6 g/dl (32-36); Mean Corpuscular Hemoglobin 26.3 pg (26-34); Mean Corpuscular Volume 85.9 fl (80-100); Mean Platelet Volume 8.9 fl (7.4-10.4); Platelet Count Result 324 k/mm3 (150-375); Red Blood Count 4.41 M/mm3 (4.2-5.4); Red Cell Distribution Width 13.5 % (11.5-14.5); White Blood Count 8.4 K/mm3 (4.5-10.0)
[2021-06-10 06:55] LABS: Anion Gap 7 mmol/L (8-16); Blood Urea Nitrogen 36 mg/dL (7-17); Calcium 9.6 mg/dL (8.4-10.2); Carbon Dioxide 35 mmol/L (22-30); Chloride 95 mmol/L (98-107); Estimated CRCL calculation 84 ml/min; Estimated Glomerular Filt Rate 37; Glucose 112 mg/dL (65-110); Potassium 4.8 mmol/L (3.4-5.0); Sodium 137 mmol/L (137-145)
[2021-06-10] MEDS: ENOXAPARIN 40 MG/0.4 ML SYRINGE SUB-Q (08:11)
[2021-06-10] MEDS: hydroCHLOROthiazide 12.5 MG CAPSULE PO (08:11)
[2021-06-10] MEDS: hydroCHLOROthiazide 25 MG TABLET PO (08:12)
[2021-06-10] MEDS: FLUoxetine HCL 20 MG CAPSULE BY MOUTH (08:12)
[2021-06-10] MEDS: SPIRONOLACTONE 25 MG TABLET PO (08:12)
[2021-06-10] MEDS: LOSARTAN POTASSIUM 100 MG TABLET PO (08:12)
[2021-06-10] MEDS: PRAVASTATIN SODIUM 20 MG TABLET BY MOUTH (08:12)
[2021-06-10] MEDS: PANTOPRAZOLE 40 MG TABLET PO (08:12)
[2021-06-10] MEDS: METOPROLOL SUCCINATE EXT REL 100 MG TABCR PO (08:13)
[2021-06-10] MEDS: SILVERGEL (ELTA) 45 ML 1 APPLIC TOPICAL (08:18)
--- NOTE | 2021-06-10 09:28 | PCNWS ---
Weekly nutritional screen. Patient is tolerating current diet with adequate intake of 100% of meals. No weight loss reported. No nutritional needs at this time.
--- NOTE | 2021-06-10 10:29 | PM.IMPN ---
Progress Note: A&P Assessment and Plan (1) Pneumonia due to COVID-19 virus: Code(s): U07.1 - COVID-19; J12.82 - Pneumonia due to coronavirus disease 2019 Status: Acute Assessment and Plan: Patient diagnosis with COVID-19 on 06/05/2021. Patient was started on remdesivir(06/05-06/09), completed 5 doses and Decadron. She has receive her final dose of remdesivir today. High oxygen supplement requirement is improving, tolerating 0-1 L at rest.; however patient oxygen continues to drop significantly with effort; she would need 4 L with activity. Echocardiogram: dilated inferior vena cava with >50% collapse upon inspiration consistent with elevated right atrial pressure, 10 mmHg. Portable chest reveals improving patchy bilateral pneumonia. Chest x-ray from 06/04/2021 reveals diffuse lung disease consistent with COVID 19 pneumonia. Continue with albuterol, Robitussin, Decadron . Continue to monitor renal function and liver functions and inflammatory markers. Clinically stable requiring only 1 L of oxygen to maintain her saturation rest. (2) Hypertension: Code(s): I10 - Essential (primary) hypertension Status: Chronic Assessment and Plan: Patient blood pressure have been increasing, which is a good sign. Last blood pressure measurements are in the 129/77-162/70 range. We will previously holding spironolactone, losartan and hydrochlorothiazide. Patient was only receiving metoprolol . Resume hydrochlorothiazide. Continue to monitor blood pressure closely. (3) Acute kidney injury: Code(s): N17.9 - Acute kidney failure, unspecified Status: Acute Assessment and Plan: Recovered acute kidney injury. Patient appears to be back at her baseline. Hold diuretics and naproxen. Avoid NSAIDs and other nephrotoxic medications in the future P The patient stated that she takes a lot of naproxen for her body aches. Hold losartan. Unfortunately renal ultrasound was a nondiagnostic evaluation of the kidneys due to body habitus. The right kidney is not visualized. A structure that may be the left kidney is poorly visualized (4) Anxiety: Code(s): F41.9 - Anxiety disorder, unspecified Status: Chronic Assessment and Plan: Continue with fluoxetine (5) Obesity: Code(s): E66.9 - Obesity, unspecified Status: Chronic Assessment and Plan: Due to increased caloric intake. Patient currently on weight management program. Patient is already following calorie restriction. Recent weight gain due to stress at work. 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 Patient already attending therapy session to the with the addiction. (6) GERD with esophagitis: Code(s): K21.00 - Gastro-esophageal reflux disease with esophagitis, without bleeding Status: Chronic Assessment and Plan: Continue with her home dose of pantoprazole. Give Tums as needed for symptoms. (7) Ulcer of right lower extremity: Qualifiers: Non-pressure ulcer stage: limited to breakdown of skin Qualified Code(s): L97.911 - Non-pressure chronic ulcer of unspecified part of right lower leg limited to breakdown of skin Code(s): L97.919 - Non-pressure chronic ulcer of unspecified part of right lower leg with unspecified severity Status: Acute Assessment and Plan: Patient has outpatient wound care treatment. Continue with consultation for wound care clinic. Additional Plan 06/10/2021 Plan is to continue current treatment. Try to decrease oxygen requirement. In physical therapy to increase activity. Is stays okay possible discharge tomorrow morning. Patient creatinine is slightly high so will hold off on hydrochlorothiazide. Subjective Date/time seen: 06/10/21 10:29 Patient seen during the morning rounds today. Patient feeling much better today. Decreased shortness of breath. No chest pain. No abdominal pain, no nausea, no vomiting. Mood s
--- NOTE | 2021-06-10 12:18 | PM.DS ---
DS: Admitting Diagnosis Discharge Date 06/10/2020 COVID pneumonia Admitting Diagnosis COVID pneumonia DS: Discharge Diagnosis Discharge Diagnosis (1) Pneumonia due to COVID-19 virus: Code(s): U07.1 - COVID-19; J12.82 - Pneumonia due to coronavirus disease 2019 Status: Acute Assessment and Plan: Patient diagnosis with COVID-19 on 06/05/2021. Patient was started on remdesivir(06/05-06/09), completed 5 doses and Decadron. She has receive her final dose of remdesivir today. High oxygen supplement requirement is improving, tolerating 0-1 L at rest.; however patient oxygen continues to drop significantly with effort; she would need 4 L with activity. Echocardiogram: dilated inferior vena cava with >50% collapse upon inspiration consistent with elevated right atrial pressure, 10 mmHg. Portable chest reveals improving patchy bilateral pneumonia. Chest x-ray from 06/04/2021 reveals diffuse lung disease consistent with COVID 19 pneumonia. Continue with albuterol, Robitussin, Decadron . Continue to monitor renal function and liver functions and inflammatory markers. Clinically stable requiring only 1 L of oxygen to maintain her saturation rest. (2) Hypertension: Code(s): I10 - Essential (primary) hypertension Status: Chronic Assessment and Plan: Patient blood pressure have been increasing, which is a good sign. Last blood pressure measurements are in the 129/77-162/70 range. We will previously holding spironolactone, losartan and hydrochlorothiazide. Patient was only receiving metoprolol . Resume hydrochlorothiazide. Continue to monitor blood pressure closely. (3) Acute kidney injury: Code(s): N17.9 - Acute kidney failure, unspecified Status: Acute Assessment and Plan: Recovered acute kidney injury. Patient appears to be back at her baseline. Hold diuretics and naproxen. Avoid NSAIDs and other nephrotoxic medications in the future P The patient stated that she takes a lot of naproxen for her body aches. Hold losartan. Unfortunately renal ultrasound was a nondiagnostic evaluation of the kidneys due to body habitus. The right kidney is not visualized. A structure that may be the left kidney is poorly visualized (4) Anxiety: Code(s): F41.9 - Anxiety disorder, unspecified Status: Chronic Assessment and Plan: Continue with fluoxetine (5) Obesity: Code(s): E66.9 - Obesity, unspecified Status: Chronic Assessment and Plan: Due to increased caloric intake. Patient currently on weight management program. Patient is already following calorie restriction. Recent weight gain due to stress at work. 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 Patient already attending therapy session to the with the addiction. (6) GERD with esophagitis: Code(s): K21.00 - Gastro-esophageal reflux disease with esophagitis, without bleeding Status: Chronic Assessment and Plan: Continue with her home dose of pantoprazole. Give Tums as needed for symptoms. (7) Ulcer of right lower extremity: Qualifiers: Non-pressure ulcer stage: limited to breakdown of skin Qualified Code(s): L97.911 - Non-pressure chronic ulcer of unspecified part of right lower leg limited to breakdown of skin Code(s): L97.919 - Non-pressure chronic ulcer of unspecified part of right lower leg with unspecified severity Status: Acute Assessment and Plan: Patient has outpatient wound care treatment. Continue with consultation for wound care clinic. DS: Summary Hospital Course Reason for hospitalization: [facility] Course: 50 years old female was admitted with COVID pneumonia. Patient was given antibiotics and antiviral treatment. Patient did not have any complication during stay in the hospital. Today patient is feeling better so patient discharged home in stable condition. Patient will continue to use her CPAP an
== END 2021-06-10 13:05 | disposition home or self-care (01) | DRG 137 ==
LOC: ANHED 13:32 → ANH3MEDSUR 06-06 09:08
PROVIDERS: Internal Medicine; Nurse Practitioner; Admitting Provider Hospitalist; Emergency Provider Emergency Medicine; PCP Family Medicine; Visit Provider Internal Medicine
DX: U07.1 COVID-19 (principal); J12.82 Pneumonia due to coronavirus disease 2019; I10 Essential (primary) hypertension; N17.9 Acute kidney failure, unspecified; R09.02 Hypoxemia; F41.9 Anxiety disorder, unspecified; E66.9 Obesity, unspecified; K21.00 Gastro-esophageal reflux disease with esophagitis, without bleeding; R93.1 Abnormal findings on diagnostic imaging of heart and coronary circulation; R06.81 Apnea, not elsewhere classified; L97.919 Non-pressure chronic ulcer of unspecified part of right lower leg with unspecified severity; I87.2 Venous insufficiency (chronic) (peripheral); E66.01 Morbid (severe) obesity due to excess calories; Z68.45 Body mass index [BMI] 70 or greater, adult; Z90.49 Acquired absence of other specified parts of digestive tract
CPT/HCPCS: 36415; 36600; 71045; 76775; 80048; 80053; 82375; 82565; 82728; 82805; 83050; 83605; 83615; 83735; 84443; 84460; 85025; 85027; 85380; 85610; 85730; 86140; 87040; 87426; 93005; 93970; 94618; 94640; 94660; 99285; A9270; C8929; C9803; J1100; J1650; J7030; J8540; Q9957

== ENCOUNTER 2021-07-04 14:45 | Outpatient (CLI) | payer OTHER, SELFPAY ==
--- NOTE | ~2021-07-04 | XR_ITS ---
XR chest 2V DATE: 07/04/2021 15:02 INDICATION: Covid pneumonia. Shortness of breath. TECHNIQUE: PA and lateral views COMPARISON: 06/06/2021 portable AP chest FINDINGS: Mild diffuse patchy bilateral pulmonary infiltrates are noted, improved since 06/10/2021. Normal heart size. No hilar or mediastinal enlargement. No pleural effusion or pulmonary vascular con gestion or pneumothorax. Degenerative spurring of the thoracic and lumbar spine. Scoliosis. IMPRESSION: Mild diffuse patchy bilateral pulmonary infiltrate, diminished since 06/10/2021 Reviewed, dictated and finalized at location A. ETRIC FINGERPRINTING TECHNICIAN IMPRESSION: Mild diffuse patchy bilateral pulmonary infiltrate, diminished sinc e 06/10/2021
== END 2021-07-04 14:46 | disposition home or self-care (01) ==
LOC: ANHIMG 14:52
PROVIDERS: PCP Family Medicine; Visit Provider Physician Assistant Medical
DX: U07.1 COVID-19 (principal); J12.82 Pneumonia due to coronavirus disease 2019
CPT/HCPCS: 71046

== ENCOUNTER 2022-12-06 07:28 | Outpatient (RCR) | payer OTHER, SELFPAY ==
[2022-12-06 08:00] VITALS: BMI 72.5
== END 2023-01-25 13:01 | disposition home or self-care (01) ==
LOC: ANHWOC 07:28
PROVIDERS: PCP Family Medicine; Visit Provider Physician Assistant Medical
DX: S81.809D Unspecified open wound, unspecified lower leg, subsequent encounter (principal)
CPT/HCPCS: 99213; G0463

== ENCOUNTER 2024-04-24 12:45 | Emergency (ER) | payer OTHER, SELFPAY ==
--- NOTE | ~2024-04-24 | XR_ITS ---
EXAMINATION: XR chest 2V DATE: 04/24/2024 14:59 INDICATION: Upper abdominal pain. Cough. Nausea. Left chest pain. TECHNIQUE: Frontal and lateral views of the chest were obtained. COMPARISON: Chest 2 views 07/04/21 FINDINGS: There is mild atelectasis in left lower lung zone. No pleural effusion or pneumothorax. Thi s is normal. IMPRESSION: 1. Mild atelectasis in left lower lung zone. Reviewed, dictated and finalized at location A. NG WRITER
--- NOTE | 2024-04-24 12:46 | ECG_ITS ---
Test Date: 2024-04-24 12:56:54 Measurements Intervals [place] Rate: 75 P: 38 MN: 156 QRS: -1 QRSD: 114 T: 24 QT: 356 QTc: 398 Interpretive Statements SINUS RHYTHM INTRAVENTRICULAR CONDUCTION DELAY DELAYED PRECORDIAL R/S TRANSITION LEFT VENTRICULAR HYPERTROPHY WITH ST-T CHANGE BASELINE ARTIFACT- I, II, III, AVR, AVL, AVF BORDERLINE ECG No previous ECG available for comparison Electronically Signed On 04-24-2024 13:49:59 CHILLER TENDER by Rubens Adrian D.O.
[2024-04-24 12:51] VITALS: BP 154/61; PULSE 78; RESP 20; TEMP 36.4; O2SAT 94
--- NOTE | 2024-04-24 14:18 | ED.NAVMDI ---
HPI - Nausea/Vomiting/Diarrhea General Chief complaint: Nausea/Vomiting/Diarrhea <JEREMIAH Graham Last Filed: 04/24/24 14:27> Stated complaint: low grade nausea <JEREMIAH Graham Last Filed: 04/24/24 14:27> Time Seen by Provider: 04/24/24 14:18 <JEREMIAH Graham Last Filed: 04/24/24 14:27> Focused HPI: Patient is a 53 y/o female who presents to the ED with c/o nausea and upper abdominal pain. Patient reports having low grade nausea for the past 4-5 days. She reports having intermittent feeling of needing to vomit, and having dry heaving. She has had a discomfort and a gnawing sensation in her upper abdomen. Hx of GERD, on pantoprazole. Also reports having shakiness, body aches, cough, congestion. Denies SOB or distinct CP. Denies fevers. Has fhx of heart disease. GENERAL: Well-appearing, morbidly obese with BMI of 72.3, and in no acute distress. HEAD: Normocephalic, atraumatic. CHEST: Clear to auscultation. ?No respiratory distress. HEART: Regular rate and rhythm.? ABD: Mild TTP in epigastric region. NEURO: ?Alert and oriented x3. Patient screened in triage and initial orders placed.? ?Additional care and disposition to be based upon?diagnostic testing and treatment. <Janelle Miller PA-C - Last Filed: 04/24/24 14:27> Source: patient <JEREMIAH Graham Last Filed: 04/24/24 14:27> Mode of arrival: ambulatory <JEREMIAH Graham Last Filed: 04/24/24 14:27> Limitations: no limitations <JEREMIAH Graham Last Filed: 04/24/24 14:27> History of Present Illness HPI Narrative: Agree with HPI. <Jamal Casey MD - Last Filed: 04/24/24 16:46> Related Data Home medications: Home Medications Medication Instructions Recorded Confirmed furosemide 20 mg tablet 20 mg PO .PRN 02/28/24 03/04/24 <Janelle Miller PA-C - Last Filed: 04/24/24 14:27> Allergies/Adverse reactions: Allergies Allergy/AdvReac Type Severity Reaction Status Date / Time No Known Allergies Allergy Mild Verified 04/24/24 12:48 <Janelle Miller PA-C - Last Filed: 04/24/24 14:27> [facility] Past Medical History Medical History: Medical History Anxiety Ataxia Epigastric pain GERD with esophagitis Hypertension Obesity Obesity, morbid, BMI 50 or higher Screen for colon cancer Screening mammogram, encounter for <JEREMIAH Graham Last Filed: 04/24/24 14:27> Surgical History Surgical History: Surgical History H/O eye surgery The patient has had 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 The patient is due to have another surgery yet. Hx of cholecystectomy <JEREMIAH Graham Last Filed: 04/24/24 14:27> Family History Family History: Family History Mother Hypertension Family history of kidney disease Carcinoma of colon Family history of diabetes mellitus in first degree relative Sibling Family history of elevated blood lipids Father Acute myocardial infarction age 49 of [place] Other Diabetes mellitus Family history of cardiovascular disease <JEREMIAH Graham Last Filed: 04/24/24 14:27> Social History Social History: Social History Social History: The patient lives with her roommate and the roommate's mother. Patient has no children. 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 She is single. She is a lifelong nonsmoker. She does not use any alcohol marijuana or illicit drugs. Astrid sullivan is her durable power immigration attorney for healthcare. 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 Gender identity (if verbalized by the patient): Female Spiritual care concerns: No <Janelle Miller PA-C - Last Filed: 04/24/24 14:27> Exam Narrative: GENERAL: Well-appearing, Morbidly obese, and in no acute distress. HEAD: Normocephalic, atraumatic. ENT: Mucous membranes moist. CHEST: Clear to auscultation. No respiratory distress. HEART: Regular rate and rhythm. Normal peripheral pulses. ABDOMEN: Soft, nontender, nondistended. EXTREMITIES: Normal range of motion. No edema. SKIN: Warm, dry, no rash. NEURO: Alert and oriented x3. PSYCH: Normal mood and affect. <Jamal Casey MD - Last Filed: 04/24/24 16:46> Course Course Emergency Course: patient resting comfortably. Feels markedly improved with GI cocktail. Discharge home. <Jamal Casey MD - Last Filed: 04/24/24 16:46> Vital Signs Vital signs: Vital Signs Temperature 97.5 F L 04/24/24 12:51 Pulse Rate 78 04/24/24 12:51 Respiratory Rate 20 04/24/24 12:51 Blood Pressure 154/61 H 04/24/24 12:51 Pulse Oximetry 94 04/24/24 12:51 Oxygen Delivery Room Air 04/24/24 12:51 Temperature 97.5 F L 04/24/24 12:51 Pulse Rate 78 04/24/24 12:51 Respiratory Rate 20 04/24/24 12:51 Blood Pressure 154/61 H 04/24/24 12:51 Pulse Oximetry 94 04/24/24 12:51 Oxygen Delivery Room Air 04/24/24 12:51 <Janelle Miller PA-C - Last Filed: 04/24/24 14:27> Vital Signs Temperature 97.5 F L 04/24/24 12:51 Pulse Rate 78 04/24/24 12:51 Respiratory Rate 20 04/24/24 12:51 Blood Pressure 154/61 H 04/24/24 12:51 Pulse Oximetry 94 04/24/24 12:51 Oxygen Delivery Room Air 04/24/24 12:51 Temperature 97.5 F L 04/24/24 12:51 Pulse Rate 78 04/24/24 12:51 Respiratory Rate 20 04/24/24 12:51 Blood Pressure 154/61 H 04/24/24 12:51 Pulse Oximetry 94 04/24/24 12:51 Oxygen Delivery Room Air 04/24/24 12:51 <Jamal Casey MD - Last Filed: 04/24/24 16:46> MDM - Nausea/Vomiting/Diarrhea MDM Narrative Medical decision making narrative: MSE by ZHAO in triage. <Janelle Miller PA-C - Last Filed: 04/24/24 14:27> Lab Data Result diagrams: 04/24/24 14:28 04/24/24 14:28 <Janelle Miller PA-C - Last Filed: 04/24/24 14:27> Labs: Lab Results 04/24/24 Range/Units 14:28 WBC 8.4 (4.5-10.0) K/mm3 RBC 4.50 (4.2-5.4) M/mm3 Hgb 12.3 (12.0-15.0) g/dL Hct 40.1 (37.0-47.0) % MCV 89.1 (80-100) fl MCH 27.3 (26-34) pg MCHC 30.7 L (32-36) g/dl RDW 13.3 (11.5-14.5) % Plt Count 297 (150-375) k/mm3 MPV 9.3 (7.4-10.4) fl Immature Gran % (Auto) 0.6 H (0-0.5) % Neut % (Auto) 66.3 (45.5-73.1) % Lymph % (Auto) 16.7 L (18.3-44.2) % [place] % (Auto) 7.9 (2.6-8.5) % Eos % (Auto) 7.9 H (0-4.4) % Baso % (Auto) 0.6 (0.2-1.2) % Lymph # (Auto) 1.40 (0.9-3.2) K/mm3 [place] # (Auto) 0.7 H (0.1-0.6) K/mm3 Eos # (Auto) 0.7 H (0-0.3) K/mm3 Baso # (Auto) 0.1 (0.0-0.1) K/mm3 Abs Immat Gran (auto) 0.05 H (0.00-0.031) K/mm3 Absolute Neuts (auto) 5.6 (1.3-6.7) K/mm3 Absolute Nucleated RBC 0.000 (0.0-0.012) K/mm3 Nucleated RBC % 0.0 (0.0-0.2) % PT 14.7 (11.1-14.7) Seconds INR 1.1 APTT 28.4 (22.3-36.8) Seconds Sodium 142 (137-145) mmol/L Potassium 5.0 (3.4-5.0) mmol/L Chloride 104 (98-107) mmol/L Carbon Dioxide 28 (22-30) mmol/L Anion Gap 10 (4-12) mmol/L BUN 31 H (7-17) mg/dL Creatinine 1.40 H (0.7-1.0) mg/dL Estim Creat Clear Calc 87 ml/min Estimated GFR 39 L (59 - ) Glucose 111 H (65-110) mg/dL Calcium 9.7 (8.4-10.2) mg/dL Magnesium 1.6 (1.6-2.3) mg/dL Total Bilirubin 1.2 (0.2-1.3) mg/dL AST 19 (14-36) U/L ALT 12 (6-35) U/L Alkaline Phosphatase 92 (38-126) U/L Troponin I < 0.012 (0.000-0.034) ng/mL Total Protein 9.0 H (6.3-8.2) g/dL Albumin 4.5 (3.5-5.1) g/dL Lipase 102 (23-300) U/L Influenza A (RT-PCR) Negative (Negative) Influenza B (RT-PCR) Negative (Negative) RSV (RT-PCR) Negative (Negative) SARS-CoV-2 RNA (RT-PCR) Negative (Negative) <Janelle Miller PA-C - Last Filed: 04/24/24 14:27> Lab Results 04/24/24 Range/Units 14:28 WBC 8.4 (4.5-10.0) K/mm3 RBC 4.50 (4.2-5.4) M/mm3 Hgb 12.3 (12.0-15.0) g/dL Hct 40.1 (37.0-47.0) % MCV 89.1 (80-100) fl MCH 27.3 (26-34) pg MCHC 30.7 L (32-36) g/dl RDW 13.3 (11.5-14.5) % Plt Count 297 (150-375) k/mm3 MPV 9.3 (7.4-10.4) fl Immature Gran % (Auto) 0.6 H (0-0.5) % Neut % (Auto) 66.3 (45.5-73.1) % Lymph % (Auto) 16.7 L (18.3-44.2) % [place] % (Auto) 7.9 (2.6-8.5) % Eos % (Auto) 7.9 H (0-4.4) % Baso % (Auto) 0.6 (0.2-1.2) % Lymph # (Auto) 1.40 (0.9-3.2) K/mm3 [place] # (Auto) 0.7 H (0.1-0.6) K/mm3 Eos # (Auto) 0.7 H (0-0.3) K/mm3 Baso # (Auto) 0.1 (0.0-0.1) K/mm3 Abs Immat Gran (auto) 0.05 H (0.00-0.031) K/mm3 Absolute Neuts (auto) 5.6 (1.3-6.7) K/mm3 Absolute Nucleated RBC 0.000 (0.0-0.012) K/mm3 Nucleated RBC % 0.0 (0.0-0.2) % PT 14.7 (11.1-14.7) Seconds INR 1.1 APTT 28.4 (22.3-36.8) Seconds Sodium 142 (137-145) mmol/L Potassium 5.0 (3.4-5.0) mmol/L Chloride 104 (98-107) mmol/L Carbon Dioxide 28 (22-30) mmol/L Anion Gap 10 (4-12) mmol/L BUN 31 H (7-17) mg/dL Creatinine 1.40 H (0.7-1.0) mg/dL Estim Creat Clear Calc 87 ml/min Estimated GFR 39 L (59 - ) Glucose 111 H (65-110) mg/dL Calcium 9.7 (8.4-10.2) mg/dL Magnesium 1.6 (1.6-2.3) mg/dL Total Bilirubin 1.2 (0.2-1.3) mg/dL AST 19 (14-36) U/L ALT 12 (6-35) U/L Alkaline Phosphatase 92 (38-126) U/L Troponin I < 0.012 (0.000-0.034) ng/mL Total Protein 9.0 H (6.3-8.2) g/dL Albumin 4.5 (3.5-5.1) g/dL Lipase 102 (23-300) U/L Influenza A (RT-PCR) Negative (Negative) Influenza B (RT-PCR) Negative (Negative) RSV (RT-PCR) Negative (Negative) SARS-CoV-2 RNA (RT-PCR) Negative (Negative) <Jamal Casey MD - Last Filed: 04/24/24 16:46> Imaging Data Radiologist's impression: ITS Impressions Chest X-Ray 04/24/24 15:07 IMPRESSION: 1. Mild atelectasis in left lower lung zone. <Jamal Casey MD - Last Filed: 04/24/24 16:46> ECG Data EKG #1: ECG completion date: 04/24/24 <Jamal Casey MD - Last Filed: 04/24/24 16:46> ECG completion time: 12:56 <Jamal Casey MD - Last Filed: 04/24/24 16:46> EKG Interpretation: normal rate (75), sinus rhythm, non-specific ST changes, normal QRS and normal QT <Jamal Casey MD - Last Filed: 04/24/24 16:46> Discharge Plan Discharge Clinical Impression: GERD (gastroesophageal reflux disease) <JEREMIAH Graham Last Filed: 04/24/24 14:27> Patient Disposition: Home, Self-Care <JEREMIAH Graham Last Filed: 04/24/24 14:27> Condition: Stable <JEREMIAH Graham Last Filed: 04/24/24 14:27> Instructions: GERD (Gastroesophageal Reflux Disease) (ED) <JEREMIAH Graham Last Filed: 04/24/24 14:27> Additional Instructions: Return to the emergency department if you develop severe abdominal pain, severe nausea and vomiting to the point where you are unable to keep down fluids, if you develop chest pain or difficulty breathing, blood in your stool, dizziness or fainting, or if you develop any other new or concerning symptoms as these could be signs of more serious medical illness. Try to stay well hydrated. <JEREMIAH Graham Last Filed: 04/24/24 14:27> Prescriptions: No Action furosemide 20 mg tablet 20 mg PO .PRN tramadol 50 mg tablet 50 mg PO BID PRN (Reason: pain) Qty: 60 0RF mupirocin 2 % ointment 1 applic topical TID Qty: 30 0RF albuterol sulfate [ProAir HFA] 90 mcg/actuation HFA aerosol inhaler 2 puff INHALATION Q4H PRN (Reason: shortness of breath or wheezing) Qty: 6.7 0RF fluoxetine 40 mg capsule See Rx Instructions .ROUTE .COMPLEX Qty: 90 1RF Dose Instruction: Take 1 capsule by mouth once daily Rx Instructions: Take 1 capsule by mouth once daily losartan 100 mg tablet See Rx Instructions .ROUTE .COMPLEX Qty: 90 1RF Dose Instruction: Take 1 tablet by mouth once daily Rx Instructions: Take 1 tablet by mouth once daily metoprolol succinate [Toprol XL] 100 mg tablet extended release 24 hr 100 mg PO DAILY Qty: 90 0RF naproxen [Naprosyn] 500 mg tablet 500 mg PO BID Qty: 180 0RF pravastatin 40 mg tablet See Rx Instructions .ROUTE .COMPLEX Qty: 90 1RF Dose Instruction: Take 1 tablet by mouth once daily Rx Instructions: Take 1 tablet by mouth once daily spironolactone 25 mg tablet 25 mg PO DAILY Qty: 90 0RF pantoprazole 40 mg tablet,delayed release (DR/EC) 40 mg PO QAM Qty: 90 2RF fluticasone propion-salmeterol [Advair Diskus] 100-50 mcg/dose blister with device 1 inh inhalation Q12H Qty: 60 2RF <Janelle Miller PA-C - Last Filed: 04/24/24 14:27> Follow-up/Referrals: Mc Greco MD [Primary Care Provider] - 1 Week <Janelle Miller PA-C - Last Filed: 04/24/24 14:27>
[2024-04-24 14:38] LABS: Basophils Absolute Auto 0.1 K/mm3 (0.0-0.1); Basophils Percent Auto 0.6 % (0.2-1.2); Eosinophils Absolute Auto 0.7 K/mm3 (0-0.3); Eosinophils Percent Auto 7.9 % (0-4.4); Hematocrit 40.1 % (37.0-47.0); Hemoglobin 12.3 g/dL (12.0-15.0); Immature Granulocyte Absolute 0.05 K/mm3 (0.00-0.031); Immature Granulocyte Percent A 0.6 % (0-0.5); Lymphocytes Percent Auto 16.7 % (18.3-44.2); Mean Corpuscular HGB Conc 30.7 g/dl (32-36); Mean Corpuscular Hemoglobin 27.3 pg (26-34); Mean Corpuscular Volume 89.1 fl (80-100); Mean Platelet Volume 9.3 fl (7.4-10.4); Monocytes Absolute Auto 0.7 K/mm3 (0.1-0.6); Monocytes Percent Auto 7.9 % (2.6-8.5); Neutrophils Absolute Auto 5.6 K/mm3 (1.3-6.7); Neutrophils Percent Auto 66.3 % (45.5-73.1); Platelet Count Result 297 k/mm3 (150-375); Red Cell Distribution Width 13.3 % (11.5-14.5); White Blood Count 8.4 K/mm3 (4.5-10.0)
[2024-04-24 14:48] LABS: Alanine Aminotransferase 12 U/L (6-35); Albumin Level 4.5 g/dL (3.5-5.1); Alkaline Phosphatase 92 U/L (38-126); Anion Gap 10 mmol/L (4-12); Aspartate Amino Transferase 19 U/L (14-36); Bilirubin,Total 1.2 mg/dL (0.2-1.3); Blood Urea Nitrogen 31 mg/dL (7-17); Calcium 9.7 mg/dL (8.4-10.2); Carbon Dioxide 28 mmol/L (22-30); Chloride 104 mmol/L (98-107); Estimated CRCL calculation 87 ml/min; Estimated Glomerular Filt Rate 39; Glucose 111 mg/dL (65-110); Lipase 102 U/L (23-300); Magnesium 1.6 mg/dL (1.6-2.3); Sodium 142 mmol/L (137-145)
[2024-04-24 14:49] LABS: INR 1.1; Prothrombin Time 14.7 Seconds (11.1-14.7)
[2024-04-24 14:50] LABS: Partial Thromboplastin Time 28.4 Seconds (22.3-36.8)
[2024-04-24 14:59] LABS: Troponin I < 0.012 ng/mL (0.000-0.034)
[2024-04-24 15:15] LABS: Influenza A QL RT-PCR Negative (Negative); Influenza B QL RT-PCR Negative (Negative); RSV RNA, RT-PCR Negative (Negative); SARS-CoV-2 RNA PCR Negative (Negative)
[2024-04-24] MEDS: FAMOTIDINE 20 MG/2 ML VIAL IV PUSH (15:32)
[2024-04-24] MEDS: ONDANSETRON INJ 4 MG/2 ML VIAL IV PUSH (15:33)
[2024-04-24] MEDS: BELLADONNA ALK/PHENOB ELIX 10 ML, MAG HYDROX/ALUMINUM HYD/SIMETH 30 ML, LIDOCAINE HCL 2... PO (15:33)
[2024-04-24 17:00] VITALS: BP 158/69; PULSE 67; RESP 16; O2SAT 97
== END 2024-04-24 17:06 | disposition home or self-care (01) ==
PROVIDERS: Physician Assistant; Emergency Provider Emergency Medicine; PCP Family Medicine
DX: K21.00 Gastro-esophageal reflux disease with esophagitis, without bleeding (principal); Z20.822 Contact with and (suspected) exposure to COVID-19; I10 Essential (primary) hypertension; E66.01 Morbid (severe) obesity due to excess calories; Z68.45 Body mass index [BMI] 70 or greater, adult; F41.9 Anxiety disorder, unspecified; Z90.49 Acquired absence of other specified parts of digestive tract; Z79.899 Other long term (current) drug therapy
CPT/HCPCS: 36415; 71046; 80053; 83690; 83735; 84484; 85025; 85610; 85730; 87637; 93005; 96374; 96375; 99284; A9270; J2405